=== PATIENT | female | born 1975 | race Caucasian/White ===

== ENCOUNTER 2024-04-03 23:44 | Emergency (ER) | payer SELFPAY ==
[2024-04-03 23:58] VITALS: RESP 14; TEMP 97.7; BMI 23.6
[2024-04-04 00:20] LABS: VENOUS BASE EXCESS -0.8 mmol/L (-2-2); VENOUS O2 SATURATION 42.2 % (70-80); VENOUS PCO2 50.1 mmHg (38-52); VENOUS PH 7.325 (7.310-7.410)
[2024-04-04] MEDS: SODIUM CHLORIDE 0.9% 500 ML INFUS.BAG IV ONE (00:33)
[2024-04-04 00:39] LABS: EOS % 0.4 % (0-4.5); HEMATOCRIT 28.1 % (32.4-45.2); MEAN CELL VOLUME 66.4 fl (80-96); POTASSIUM 3.9 mmol/L (3.5-5.1); RBC 4.23 M/mm3 (3.60-5.2); WHITE BLOOD COUNT 8.4 K/mm3 (4.0-10.0)
[2024-04-04 00:41] LABS: CALCIUM 9.1 mg/dL (8.5-10.1)
[2024-04-04 00:42] LABS: BLOOD UREA NITROGEN 14.8 mg/dL (7-18); MAGNESIUM 2.1 mg/dL (1.8-2.4)
[2024-04-04 00:44] LABS: BASO % 0.6 % (0-2.0); HEMOGLOBIN 8.7 GM/dL (10.7-15.3); LYMPH % 31.4 % (8-40); MCH 20.6 pg (25.7-33.7); MONO % 6.8 % (3.8-10.2); NEUT % 60.8 % (42.8-82.8); PLATELET COUNT 323 10^3/uL (134-434); RDW 22.1 % (11.6-15.6)
[2024-04-04 00:45] LABS: CREATININE 0.6 mg/dL (0.55-1.3); PHOSPHOROUS 4.2 mg/dL (2.5-4.9)
[2024-04-04 00:46] LABS: BILIRUBIN,TOTAL 0.2 mg/dL (0.2-1); TOT PROT 6.8 g/dl (6.4-8.2)
[2024-04-04 02:14] VITALS: BP 98/59; PULSE 86
[2024-04-04 05:37] LABS: ANISOCYTOSIS 3+; MACROCYTOSIS 0; TARGET CELLS 1+
== END 2024-04-04 02:25 | disposition home or self-care (01) ==
LOC: JER 23:44
DX: R55 Syncope and collapse (principal); R11.0 Nausea
CPT/HCPCS: 36415; 71045-TC-FY; 80053; 82010; 82803; 82962; 83605; 83735; 84100; 84484; 84703; 85025; 86850; 86900; 86901; 93005; 93010; 99285-25

== ENCOUNTER 2024-11-28 10:05 | Day surgery (SDC) | payer OTHER ==
[2024-11-28] MEDS ORDERED: ACETAMINOPHEN INJECTION 100 ML ONE (12:24)
[2024-11-28] MEDS ORDERED: FAMOTIDINE 10 MG/ML VIAL IVPB ONE (12:24)
[2024-11-28] MEDS ORDERED: ONDANSETRON 4 MG/2 ML VIAL ONE (12:24)
[2024-11-28] MEDS: FAMOTIDINE 20 MG/50 ML IVPB 20 MG/50 ML MG IVPB ONE (12:46)
[2024-11-28] MEDS: ACETAMINOPHEN 1000 MG/100 ML BAG IVPB ONE (12:46)
[2024-11-28] MEDS: ONDANSETRON 4 MG/2 ML VIAL IVPUSH ONE (12:47)
[2024-11-28 12:49] LABS: MCHC 29.4 g/dl (32.2-35.5); MEAN CELL VOLUME 56.5 fl (79.4-94.8); RDW 21.4 % (12.2-17.1)
[2024-11-28 13:07] LABS: CO2 26.0 mmol/L (21-32)
[2024-11-28 13:08] LABS: GLUCOSE,RANDOM 177.0 mg/dL (74-106)
[2024-11-28 13:10] LABS: CREATININE 0.5 mg/dL (0.55-1.3); SGOT/AST 16.0 U/L (15-37); SGPT/ALT 19.0 U/L (13-61)
[2024-11-28 13:12] LABS: TOT PROT 7.4 g/dl (6.4-8.2)
[2024-11-28 13:13] LABS: ALK PHOS 119.0 U/L (45-117)
[2024-11-28 15:32] LABS: HIV INTERPRETATION NEGATIVE (NEGATIVE)
[2024-11-28 15:38] LABS: HCV DIAGNOSTIC IN-HOUSE W/RFLX NON-REACTIVE (NONREACTIVE)
[2024-11-28] MEDS ORDERED: MORPHINE SULFATE 2 MG/ML SYRINGE IVPUSH PRN (17:45)
[2024-11-28] MEDS ORDERED: PIPERACILLIN/TAZOB 3.375 GM 3.375 GM in DEXTROSE 5%-WATER - 50 ML IVPB SCH (18:00)
[2024-11-28] MEDS ORDERED: ACETAMINOPHEN 1000 MG/100 ML BAG IVPB PRN (18:01)
[2024-11-28] MEDS: PIPERACILLIN/TAZOB 4.5 GM 4.5 GM in DEXTROSE 5%-WATER 100 ML IVPB ONE (18:15)
[2024-11-28] MEDS ORDERED: PIPERACILLIN/TAZOB 4.5 GM 4.5 GM/100 ML BAG IVPB ONE (18:15)
[2024-11-28] MEDS: SODIUM CHLORIDE 1,000 ML IV SCH (18:15)
[2024-11-28] MEDS: ROSUVASTATIN CA 20 MG TABLET PO SCH (21:44)
[2024-11-28] MEDS: MELATONIN 5 MG TABLETS PO PRN (23:00)
[2024-11-28] MEDS: ONDANSETRON 4 MG/2 ML VIAL IVPUSH PRN (23:36)
[2024-11-29] MEDS: ACETAMINOPHEN 1000 MG/100 ML BAG IVPB PRN (00:13)
[2024-11-29] MEDS: PIPERACILLIN/TAZOB 3.375 GM 3.375 GM in DEXTROSE 5%-WATER - 50 ML IVPB SCH (02:35)
[2024-11-29 03:23] LABS: URINE APPEARANCE CLEAR; URINE BILIRUBIN NEGATIVE (NEGATIVE); URINE COLOR YELLOW; URINE GLUCOSE (UA) 3+ (NEGATIVE); URINE KETONE NEGATIVE (NEGATIVE); URINE LEUK ESTERASE NEGATIVE (NEGATIVE); URINE NITRITE NEGATIVE (NEGATIVE); URINE PROTEIN NEGATIVE (NEGATIVE); URINE UROBILINOGEN 0.2 mg/dL (0.2-1.0)
[2024-11-29] MEDS: INSULIN ASPART SLIDING SCALE (NOVOLOG) 1 VIAL SQ SCH ×3 (06:30→21:55)
[2024-11-29] MEDS ORDERED: INSULIN ASPART SLIDING SCALE (NOVOLOG) 1 VIAL SQ SCH ×2 (07:00→21:40)
[2024-11-29 09:14] LABS: INR 1.06 (0.83-1.09); PROTHROMBIN TIME (PATIENT) 11.5 SEC (9.7-13.0)
[2024-11-29 09:30] LABS: MCHC 29.3 g/dl (32.2-35.5); MEAN CELL VOLUME 57.1 fl (79.4-94.8); RDW 21.2 % (12.2-17.1)
[2024-11-29] MEDS ORDERED: BUPIVACAINE HCL/PF 0.25% (2.5MG/ML) 10 ML VIAL ONE (09:43)
[2024-11-29] MEDS: ESCITALOPRAM OXALATE 20 MG TABLET PO SCH (09:46)
[2024-11-29] MEDS: amLODIPine BESYLATE 5 MG TABLET (FP) PO SCH (09:47)
[2024-11-29 09:54] LABS: CO2 29.0 mmol/L (21-32); GLUCOSE,RANDOM 193.0 mg/dL (74-106)
[2024-11-29 09:56] LABS: CREATININE 0.5 mg/dL (0.55-1.3); SGOT/AST 10.0 U/L (15-37); SGPT/ALT 14.0 U/L (13-61)
[2024-11-29 09:58] LABS: TOT PROT 6.4 g/dl (6.4-8.2)
[2024-11-29 09:59] LABS: ALK PHOS 94.0 U/L (45-117)
[2024-11-29] MEDS ORDERED: CLOPIDOGREL BISULFATE 75 MG TABLET (FP) PO SCH (10:00)
[2024-11-29] MEDS ORDERED: ACETAMINOPHEN INJECTION 100 ML ONE (10:28)
[2024-11-29] MEDS ORDERED: ROCURONIUM BROMIDE 50 MG/5 ML SYRINGE ONE (10:39)
[2024-11-29] MEDS ORDERED: MIDAZOLAM HCL 2 MG/2 ML SINGLE DOSE VIAL ONE (10:39)
[2024-11-29] MEDS ORDERED: GLYCOPYRROLATE 0.2 MG/1 ML VIAL ONE ×2 (10:40→12:52)
[2024-11-29] MEDS ORDERED: LIDOCAINE HCL/PF 2% SDV 5ML VIAL ONE (10:40)
[2024-11-29] MEDS ORDERED: ONDANSETRON 4 MG/2 ML VIAL ONE ×2 (10:40→12:50)
[2024-11-29] MEDS ORDERED: DEXAMETHASONE SOD PHOSPHATE 4 MG/1 ML VIAL ONE (10:40)
[2024-11-29] MEDS ORDERED: KETOROLAC TROMETHAMINE 30 MG/1 ML VIAL ONE (10:40)
[2024-11-29] MEDS ORDERED: PROPOFOL 40 ML ONE (10:42)
[2024-11-29] MEDS ORDERED: FENTANYL CITRATE/PF 50 MCG/ML VIAL IVPUSH PRN (11:17)
[2024-11-29] MEDS ORDERED: LACTATED RINGERS SOLUTION 1,000 ML IV SCH (11:30)
[2024-11-29] MEDS: BUPIVACAINE HCL/PF 0.25% (2.5MG/ML) 10 ML VIAL IJ ONE (12:18)
[2024-11-29] MEDS ORDERED: NEOSTIGMINE METHYLSULFATE 0.5 MG/1 ML - 10 ML MDV ONE (12:50)
[2024-11-29 13:16] VITALS: BMI 24.0
[2024-11-29] MEDS ORDERED: KETOROLAC TROMETHAMINE 30 MG/1 ML VIAL IVPUSH PRN (14:19)
[2024-11-29] MEDS ORDERED: ONDANSETRON 4 MG/2 ML VIAL IVPUSH PRN (14:19)
[2024-11-29] MEDS: LACTATED RINGERS SOLUTION 1,000 ML/1,000 ML INFUS.BAG IV SCH (14:20)
[2024-11-29] MEDS: ACETAMINOPHEN 1000 MG/100 ML BAG IVPB SCH (15:36)
[2024-11-29 18:43] VITALS: RESP 18
[2024-11-29] MEDS: ROSUVASTATIN CA 20 MG TABLET PO SCH (21:02)
[2024-11-29] MEDS: MELATONIN 5 MG TABLETS PO PRN (21:02)
[2024-11-29] MEDS: HEPARIN NA (PORCINE) 5,000 UNITS/ML 1ML VIAL SQ SCH (21:03)
[2024-11-29] MEDS ORDERED: SODIUM CHLORIDE 1,000 ML IV STA (21:11)
[2024-11-30] MEDS ORDERED: INSULIN ASPART SLIDING SCALE (NOVOLOG) 1 VIAL SQ SCH (07:00)
[2024-11-30] MEDS: amLODIPine BESYLATE 5 MG TABLET (FP) PO SCH (09:51)
[2024-11-30] MEDS: ACETAMINOPHEN 500 MG TABLET (FP) PO SCH (09:51)
[2024-11-30] MEDS: ESCITALOPRAM OXALATE 20 MG TABLET PO SCH (09:51)
[2024-11-30 11:06] VITALS: BP 164/81; PULSE 70; TEMP 97.7
[2024-11-30] MEDS: morphine CARPU-JECT 2 MG/1 ML DISP.SYRIN IVPUSH ONE (12:08)
== END 2024-11-30 15:10 | disposition home or self-care (01) ==
LOC: JER 10:05 → UNDOADMIN 16:26 → JERBED 16:26 → J5S 20:01 → JASUSAT 11-29 09:56 → J5S 11-29 10:06 → JASUSAT 11-30 15:10
PROVIDERS: ATTEND Internal Medicine
PROC: 0DTJ4ZZ Resection of Appendix, Percutaneous Endoscopic Approach (ICD-10-PCS; principal; 2024-11-29 12:00)
DX: K35.80 Unspecified acute appendicitis (principal)
CPT/HCPCS: 36415; 74177-TC; 80053; 81003; 82962; 83605; 83690; 83735; 84100; 84703; 85025; 85027; 85610; 86803; 86850; 86900; 86901; 87389; 88304-TC; 93005; 93010; 94010; 94760; 99285-25; Q9967